=== PATIENT | female | born 1995 | race Caucasian/White ===

== ENCOUNTER 2021-04-24 07:35 | Emergency (ER) | payer MEDICAID ==
[~2021-04-24] VITALS: Ht 162.6 cm; Wt 65.8 kg
[~2021-04-24 07:35] MED LIST: ALBUTEROL; TYLENOL
[2021-04-24 07:42] VITALS: BP 106/56
--- NOTE | 2021-04-24 07:49 | NUR ---
Isa sotelo in [facility] - 04/24/21 at 0752 by [email or web address] TENT 1.
--- NOTE | 2021-04-24 07:53 | NUR ---
TENT7
--- NOTE | 2021-04-24 07:54 | NUR ---
BIB SELF C/O SORE THROAT X 4 DAYS AND C/O COUGH X TODAY. COVID TESTED NEGATIVE 5 DAYS AGO. PERSONS WHO TAKING CARE OF HER DAUGHTER BELLE TESTED POSITIVE . PMH: ASTHMA
[2021-04-24] MEDS ORDERED: PSEU120T22 PO (08:19)
[2021-04-24] MEDS ORDERED: IBUP-2213 PO (08:19)
[2021-04-24] MEDS ORDERED: PRED20TA5 PO (08:19)
== END 2021-04-24 09:47 | disposition home or self-care (01) ==
LOC: MED 07:35
DX: J06.9 Acute upper respiratory infection, unspecified (principal)
CPT/HCPCS: 99283

== ENCOUNTER 2022-03-16 14:45 | Emergency (ER) | payer MEDICAID ==
[~2022-03-16] VITALS: Ht 157.5 cm; Wt 63.5 kg
[~2022-03-16 14:45] MED LIST changes: +IBUP-2213 PO; +PRED20TA5 PO; +PSEU120T22 PO
[2022-03-16 15:01] VITALS: BP 115/70
[2022-03-16] MEDS ORDERED: ONDANSETRON 4 MG ODT PO ONE (15:55)
--- NOTE | 2022-03-16 16:30 | NUR ---
26 y/o female, c/o cough, congestion and vomiting since this morning. denies cp, sob, fever, chills, or sick contacts at home. a&ox4, ambulates with steady gait. pmh: denies nka
--- NOTE | 2022-03-16 16:39 | NUR ---
COVID and FLU swabs obtained, handed to CPT at bedside.
[2022-03-16] MEDS ORDERED: IBUP-1842 PO ×2 (17:01→18:02)
[2022-03-16] MEDS ORDERED: ONDA-188 SL ×2 (17:01→18:02)
[2022-03-16 17:50] VITALS: BP 115/70
--- NOTE | 2022-03-16 17:50 | NUR ---
Patient discharged with v/s stable. Written and verbal after care instructions given and explained. Patient alert, oriented and verbalized understanding of instructions. Ambulatory with steady gait. All questions addressed prior to discharge. ID band removed. Patient advised to follow up with PMD. Rx of zofran, ibuprofen (sent) given. Patient educated on indication of medication including possible reaction and side effects. Opportunity to ask questions provided and answered.
== END 2022-03-16 17:50 | disposition home or self-care (01) ==
LOC: MED 14:45
DX: B34.9 Viral infection, unspecified (principal); Z20.822 Contact with and (suspected) exposure to COVID-19
CPT/HCPCS: 81025; 87426; 87804; 99283; Q0162